=== PATIENT | male | born 1950 | race Caucasian/White ===

== ENCOUNTER 2021-07-29 09:44 | Emergency (ER) | payer MEDICARE, OTHER ==
[~2021-07-29 09:44] MED LIST: ATORVASTATIN CA80 MG PO; FAMOTIDINE20 MG PO; FENOFIBRATE145 MG PO; GABAPENTIN800 MG PO; GLYBURIDE 5MG TA5 MG PO; JARDIANCE25 MG PO; LASIX40 MG PO; MAG-OXIDE 400M400 MG PO; METFORMIN HCL1000 MG PO; POTASSIUM CHLO20 ME2 PO; RAMIPRIL5 MG PO; SUCRALFATE1 GM PO; VENTOLIN HFA IN18 GM INH; [UNRECOGNIZED DRUG - OTHER] IM/IV/SC
[2021-07-29 11:52] LABS: BASOPHIL 0.8 % (0-2); HCT 35.1 % (42.0-52.0); HGB 10.5 g/dl (13.2-18.0); MCH 27.3 pg (25.0-31.0); MCHC 29.9 g/dL (32.0-36.0); MCV 91.4 fL (78.0-100.0); MONOCYTE 6.2 % (0-12); NEUTROPHIL 62.4 % (41-80); NRBC 0; PLT 362 K/uL (150-400); RBC 3.84 M/uL (4.70-6.00); RDW 18.3 % (11.5-14.0); WBC 5.2 K/uL (4.0-10.5)
[2021-07-29] MEDS ORDERED: NYSTOP TOPICAL30 GM TOP (12:44)
== END 2021-07-29 13:30 | disposition home or self-care (01) ==
LOC: FER 09:44
PROVIDERS: Emergency Medicine
DX: B36.9 Superficial mycosis, unspecified (principal); Z79.899 Other long term (current) drug therapy; Z79.82 Long term (current) use of aspirin
CPT/HCPCS: 36415; 73610; 84145; 85025; 86140; 99283